=== PATIENT | female | born 1950 ===

== ENCOUNTER 2017-12-28 17:35 | Emergency (ER) | payer MEDICAID, MEDICARE ==
[2017-12-28 17:35] VITALS: BMI 26.8
[2017-12-28 17:39] VITALS: PULSE 82; RESP 18; TEMP 98; O2SAT 99
--- NOTE | 2017-12-28 18:09 | ED PDOC ---
HPI: Trauma/Fall - HPI Time Seen by Provider: 12/28/17 17:55 Chief Complaint (Nursing): Trauma Chief Complaint (Provider): fall History Per: Patient History/Exam Limitations: no limitations Additional History Per: EMS Additional Complaint(s): Luba is a 67 y/o female with a history of diabetes, hypertension, and COPD who was brought to the ED after tripping and falling by [employer]. Patient denies syncope or dizziness prior to fall. She states that she tripped on sidewalk. Patient complains of pain to left ribs, left hand, and left knee. She denies head injury or loss of consciousness. Patient has been able to walk since time of fall. PMD: Dr. Shi Past Medical History Reviewed: Historical Data, Nursing Documentation, Vital Signs Vital Signs: Last Vital Signs Temp 98.0 F 12/28/17 17:37 Pulse 82 12/28/17 17:37 Resp 18 12/28/17 17:37 BP 158/97 H 12/28/17 17:37 Pulse Ox 99 12/28/17 17:37 - Medical History PMH: COPD, Diabetes, HTN, Hyperlipidemia - Surgical History Surgical History: Appendectomy - Family History Family History: States: No Known Family Hx - Living Arrangements Living Arrangements: With Family - Social History Current smoker - smoking cessation education provided: No Ex-Smoker (has not smoked in the last 12 months): Yes (quit several years ago) Alcohol: None Drugs: Denies - Home Medications Home Medications: Ambulatory Orders Medication Instructions Recorded Cyclobenzaprine HCl [Flexeril] 10 mg PO TID #21 tab 01/23/15 Nebivolol [Bystolic] 5 mg PO DAILY 01/23/15 Albuterol 0.083% [Albuterol 0.083% 2.5 mg IH Q4H PRN #50 neb 03/29/16 Inhal Brook (2.5 mg/3 ml) UD] Azithromycin [Zithromax Z-Sloan] 250 mg PO DAILY #1 packet 03/29/16 predniSONE [predniSONE Tab] 40 mg PO DAILY #8 tab 03/29/16 Ibuprofen [Motrin Tab] 800 mg PO Q8 PRN #20 tab 12/28/17 traMADol [Ultram] 50 mg PO TID PRN #15 tab 12/28/17 - Allergies Allergies/Adverse Reactions: Allergies Allergy/AdvReac Type Severity Reaction Status Date / Time No Known Allergies Allergy Verified 03/21/13 09:27 Review of Systems ROS Statement: Except As Marked, All Systems Reviewed And Found Negative Cardiovascular: Positive for: Other (left rib pain s/p fall) Respiratory: Negative for: Cough Gastrointestinal: Negative for: Nausea, Vomiting Musculoskeletal: Positive for: Other (left knee pain and left hand pain s/p fall ) Neurological: Positive for: Other (no head injury or LOC) Physical Exam - Reviewed Nursing Documentation Reviewed: Yes Vital Signs Reviewed: Yes - Physical Exam Appears: Positive for: Well, Non-toxic, No Acute Distress Head Exam: Positive for: ATRAUMATIC Skin: Positive for: Normal Color, Warm. Negative for: Rash Eye Exam: Positive for: Normal appearance Neck: Positive for: Normal Cardiovascular/Chest: Positive for: Regular Rate, Rhythm, Other (Diffuse tenderness left lateral chest wall and along the left costal margin with no palpable bony deformity). Negative for: Murmur Respiratory: Positive for: Normal Breath Sounds. Negative for: Respiratory Distress Gastrointestinal/Abdominal: Positive for: Normal Exam, Soft. Negative for: Tenderness Back: Negative for: L CVA Tenderness, R CVA Tenderness, Vertebral Tenderness Extremity: Positive for: Other (Mild swelling dorsum of left hand with full range of motion of all digits, swelling and tenderness left anterior knee with full range of motion) Neurologic/Psych: Positive for: Alert, Oriented, Gait (steady). Negative for: Motor/Sensory Deficits - ECG O2 Sat by Pulse Oximetry: 99 (RA) Pulse Ox Interpretation: Normal - Other Rad CXR with left rib series X-Ray: Interpreted by Me, Viewed By Me X-Ray Interpretation: no rib fracture Left hand and wrist x-ray X-Ray: Interpreted by Me, Viewed By Me X-Ray Interpretation: no fx, no dis Left knee x-ray X-Ray: Interpreted by Me, Viewed By Me X-Ray Interpretation: no fx, no dis Medical Decision Making Medical Decision Making: Time: 18:05 Initial Impression: 67 y/o female with injuries to chest wall, left hand, and left knee after fall Initial Plan: --XR Knee 3 Views --XR Ribs and Chest --XR Hand Left 3 Views --XR Wrist Left 3 Views --Tylenol Patient is aware of x-ray results, all questions answered. Tylenol helped pain. Patient was instructed in use of incentive spirometer. Prescriptions given for Motrin and tramadol. Patient was instructed to follow up in 2-3 days with primary doctor. Scribe Attestation: Documented by Adria Anderson, acting as a scribe for Sarahy Adams PA-C Provider Scribe Attestation: All medical record entries made by the Scribe were at my direction and personally dictated by me. I have reviewed the chart and agree that the record accurately reflects my personal performance of the history, physical exam, medical decision making, and the department course for this patient. I have also personally directed, reviewed, and agree with the discharge instructions and disposition. Disposition - Clinical Impression Clinical Impression: Rib contusion, Knee sprain, Hand sprain - Patient ED Disposition Is Patient to be Admitted: No Counseled Patient/Family Regarding: Studies Performed, Diagnosis, Need For Followup, Rx Given - Disposition Referrals: Mika Shi MD [Family Provider] - Disposition: Routine/Home Disposition Time: 20:55 Condition: STABLE Additional Instructions: Take prescription medicines as directed as needed for pain. Use incentive spirometer as often as possible. Follow-up with primary doctor in 2-3 days. Prescriptions: Ibuprofen [Motrin Tab] 800 mg PO Q8 PRN #20 tab PRN Reason: Pain, Moderate (4-7) traMADol [Ultram] 50 mg PO TID PRN #15 tab PRN Reason: Pain, Moderate (4-7) Instructions: Bruised Rib (DC), Contusion (DC), Knee Sprain (DC), Hand Pain (DC ), How to Use an Incentive Spirometer Forms: [place] (Austrian) Print Language: DANISH
[2017-12-28 20:59] VITALS: BP 156/85
--- NOTE | 2017-12-29 11:46 | RAD ---
PROCEDURE: Left Hand Radiographs. HISTORY: trauma COMPARISON: None. FINDINGS: BONES: Normal. No fracture. JOINTS: Normal. No osteoarthritic changes. SOFT TISSUES: Normal. OTHER FINDINGS: None. IMPRESSION: Normal left hand radiographs.
--- NOTE | 2017-12-29 11:47 | RAD ---
PROCEDURE: Left Knee Radiographs. HISTORY: Pain. COMPARISON: None. FINDINGS: BONES: Normal. No fracture. JOINTS: Normal. No osteoarthritis. JOINT EFFUSION: None. OTHER FINDINGS: None. IMPRESSION: Normal radiographs of the left knee.
--- NOTE | 2017-12-29 11:48 | RAD ---
PROCEDURE: Radiographs of the Chest and Left Ribs. HISTORY: trauma COMPARISON: 03/29/2016. TECHNIQUE: Frontal radiograph of the chest and multiple oblique radiographs of the left ribs were obtained. FINDINGS: LEFT RIBS: No fracture or focal lesion visualized. LUNGS: Clear. PLEURA: No pneumothorax or pleural fluid. CARDIOVASCULAR: Normal sized heart. No pulmonary vascular congestion. OTHER FINDINGS: None. IMPRESSION: Unremarkable radiographs of the chest and left ribs. No left rib fracture.
--- NOTE | 2017-12-29 11:52 | RAD ---
PROCEDURE: Left Wrist Radiographs. HISTORY: trauma COMPARISON: None. FINDINGS: BONES: No definite fracture. There is curvilinear density seen in the radial aspect of the distal ulna. Question is raised of possible nondisplaced fracture. Please correlate clinically. No other fracture identified. JOINTS: Normal. No dislocation. SOFT TISSUES: Normal. OTHER FINDINGS: None. IMPRESSION: Curvilinear density in the radial aspect of the distal ulna. Possible nondisplaced fracture. Please correlate clinically. Otherwise unremarkable.
== END 2017-12-28 20:59 | disposition home or self-care (01) ==
LOC: H.ER 17:35
DX: S20.219A Contusion of unspecified front wall of thorax, initial encounter (principal); S63.90XA Sprain of unspecified part of unspecified wrist and hand, initial encounter; S83.92XA Sprain of unspecified site of left knee, initial encounter; W01.0XXA Fall on same level from slipping, tripping and stumbling without subsequent striking against object, initial encounter; Y93.01 Activity, walking, marching and hiking; Y92.480 Sidewalk as the place of occurrence of the external cause; I10 Essential (primary) hypertension; Z87.891 Personal history of nicotine dependence; J44.9 Chronic obstructive pulmonary disease, unspecified; E78.5 Hyperlipidemia, unspecified; E11.9 Type 2 diabetes mellitus without complications

== ENCOUNTER 2017-12-31 16:50 | Emergency (ER) | payer MEDICARE ==
[2017-12-31 16:50] VITALS: BMI 26.8
[2017-12-31 16:57] VITALS: BP 129/72; PULSE 80; RESP 18; TEMP 98; O2SAT 97
--- NOTE | 2017-12-31 17:06 | ED PDOC ---
Upper Extremity Pain/Injury Time Seen by Provider: 12/31/17 16:59 Chief Complaint (Nursing): Upper Extremity Problem/Injury Chief Complaint (Provider): Left wrist pain - Radiology call back History Per: Patient History/Exam Limitations: no limitations Onset/Duration Of Symptoms: Days Current Symptoms Are (Timing): Still Present Additional Complaint(s): Pt came to ER on 12/28/17 after fall. Pt was contacted regarding possible non- displaced fracture in the distal ulna and to return for splint. Past Medical History Reviewed: Historical Data, Nursing Documentation, Vital Signs Vital Signs: Last Vital Signs Temp 98 F 12/31/17 16:53 Pulse 80 12/31/17 16:53 Resp 18 12/31/17 16:53 BP 129/72 12/31/17 16:53 Pulse Ox 97 12/31/17 16:53 - Medical History PMH: COPD, Diabetes, HTN, Hyperlipidemia - Surgical History Surgical History: Appendectomy - Family History Family History: States: Unknown Family Hx - Living Arrangements Living Arrangements: With Family - Social History Current smoker - smoking cessation education provided: No - Home Medications Home Medications: Ambulatory Orders Medication Instructions Recorded Cyclobenzaprine HCl [Flexeril] 10 mg PO TID #21 tab 01/23/15 Nebivolol [Bystolic] 5 mg PO DAILY 01/23/15 Albuterol 0.083% [Albuterol 0.083% 2.5 mg IH Q4H PRN #50 neb 03/29/16 Inhal [place] (2.5 mg/3 ml) UD] Azithromycin [Zithromax Z-Sloan] 250 mg PO DAILY #1 packet 03/29/16 predniSONE [predniSONE Tab] 40 mg PO DAILY #8 tab 03/29/16 Ibuprofen [Motrin Tab] 800 mg PO Q8 PRN #20 tab 12/28/17 traMADol [Ultram] 50 mg PO TID PRN #15 tab 12/28/17 - Allergies Allergies/Adverse Reactions: Allergies Allergy/AdvReac Type Severity Reaction Status Date / Time No Known Allergies Allergy Verified 03/21/13 09:27 Review of Systems ROS Statement: Except As Marked, All Systems Reviewed And Found Negative Constitutional: Negative for: Fever, Chills Musculoskeletal: Positive for: Other Physical Exam - Reviewed Nursing Documentation Reviewed: Yes Vital Signs Reviewed: Yes - Physical Exam Appears: Positive for: Well, Non-toxic, No Acute Distress Head Exam: Positive for: ATRAUMATIC, NORMAL INSPECTION, NORMOCEPHALIC Skin: Positive for: Normal Color, Warm, DRY Eye Exam: Positive for: Normal appearance ENT: Positive for: Normal ENT Inspection Neck: Positive for: Normal Respiratory: Negative for: Accessory Muscle Use, Respiratory Distress Pulses-Radial (L): 2+ Pulses-Radial (R): 2+ Back: Positive for: Normal Inspection Extremity: Positive for: Normal ROM, Tenderness (Left wrist ) Neurologic/Psych: Positive for: Alert, Oriented - ECG O2 Sat by Pulse Oximetry: 97 Medical Decision Making Medical Decision Making: Velcro wrist splint placed. Disposition - Clinical Impression Clinical Impression: Wrist injury - Patient ED Disposition Is Patient to be Admitted: No Counseled Patient/Family Regarding: Diagnosis, Need For Followup - Disposition Disposition: Routine/Home Disposition Time: 17:05 Condition: GOOD Instructions: Common Wrist Injuries Print Language: TELUGU
== END 2017-12-31 17:21 | disposition home or self-care (01) ==
LOC: H.ER 16:50
DX: S13.4XXA Sprain of ligaments of cervical spine, initial encounter (principal); W19.XXXA Unspecified fall, initial encounter; I10 Essential (primary) hypertension; E11.8 Type 2 diabetes mellitus with unspecified complications